=== PATIENT | female | born 1950 | race Caucasian/White ===

== ENCOUNTER → 2016-05-23 | Outpatient (REF) | payer MEDICARE, OTHER ==
[~2016-05-23] MED LIST: DOCU-26; HCT25T; OXYC1TAB87 PO; POTA10CA16 PO; [UNRECOGNIZED DRUG - CODE]
[2016-05-23 12:22] LABS: BASOPHILS % (AUTO) 1 % (0-2); EOSINOPHILS # (AUTO) 0.2 10^3uL; EOSINOPHILS % (AUTO) 4 % (0-4); LYMPHOCYTES # (AUTO) 2.4 X10^3; MEAN CORPUSCULAR HEMOGLOBIN 30.5 PG (26.0-34.0); MEAN CORPUSCULAR HGB CONC 33.1 g/dL (31.0-37.0); MEAN CORPUSCULAR VOLUME 92 FL (80-100); MEAN PLATELET VOLUME 10.7 FL (6.0-9.5); MONOCYTES # (AUTO) 0.5 X10^3; MONOCYTES % (AUTO) 8 % (3-11); NEUTROPHILS # (AUTO) 3.4 X10^3; NEUTROPHILS % (AUTO) 51 % (51-67); PLATELET COUNT 227 10^3uL (150-450); WHITE BLOOD COUNT 6.57 10^3uL (4.0-11.0)
[2016-05-23 12:29] LABS: ALBUMIN 4.3 g/dL (3.4-5.0); ANION GAP 14.2 MEQ/L (3-15); CALCULATED IONIZED CALCIUM 4.2 mg/dL (3.8-4.6); TOTAL PROTEIN 7.2 g/dL (6.4-8.5)
== END ==
LOC: LAB 12:14
PROVIDERS: ATTEND Physician Assistant Surgical
DX: I10 Essential (primary) hypertension (principal); E78.00 Pure hypercholesterolemia, unspecified
CPT/HCPCS: 80053; 80061; 85025

== ENCOUNTER → 2016-05-29 | Outpatient (CLI) | payer MEDICARE, OTHER ==
--- NOTE | 2016-05-29 11:53 | Diagnostic Imaging Report ---
Indication: 66-year-old postmenopausal female. Comparison: None available. Baseline examination. Technique: DEXA of the lumbar spine and left hip was performed. Findings: The L1-L4 vertebrae were used for assessment of the lumbar spine. The bone mineral density for the total lumbar spine is 1.603 g/cm2, and the T score is 4.2. Please note that the bone mineral density in the lumbar spine may be falsely elevated due to degenerative sclerotic changes could artificially elevate the bone mineral density. The left femoral neck has a bone density of 1.199 g/cm2, and the T score is 1.8. Impression: 1. Normal bone mineral density. Dictated by: Dictated on workstation # [id number]
--- NOTE | 2016-05-30 17:31 | Diagnostic Imaging Report ---
EXAM: DIG GONZALEZ BILAT SCREEN W CAD. The current study was also evaluated with a Computer Aided Detection (CAD) system. INDICATION: Screening. COMPARISON: Mammograms 06/06/2008, 12/23/2011. DENSITY: Almost entirely fatty. FINDINGS: No significant change. No mass, calcification or architectural distortion suspicious for malignancy in either breast. IMPRESSION: No mammographic findings suspicious for malignancy. RECOMMENDATION: Routine screening mammography in one year. ACR BI-RADS Category 1: Negative. Result letter will be mailed to the patient. Note: At least 10% of breast cancer is not imaged by mammography. Dictated by: Dictated on workstation # [id number]
== END ==
LOC: RAD 09:34
PROVIDERS: ATTEND Physician Assistant Surgical
DX: Z12.31 Encounter for screening mammogram for malignant neoplasm of breast (principal); Z78.0 Asymptomatic menopausal state
CPT/HCPCS: 77080; G0202